=== PATIENT | male | born 1965 | race Caucasian/White ===

== ENCOUNTER 2018-08-05 17:16 | Observation (INO) | payer OTHER ==
[~2018-08-05] VITALS: Ht 185.4 cm; Wt 106.1 kg
--- OUTSIDE RECORDS SUMMARY | ~2018-08-05 | XMS | Clinical Summary ---
Demographics + + + | Address | [address] | | | [place] [address] | + + + | Home Phone | | + + + | Preferred Language | Unknown | + + + | Marital Status | | + + + | Latter Day Affiliation | Unknown | + + + | Race | Unknown | + + + | Ethnic Group | Unknown | + + + Author + + + | Author | [facility] | | | and [place] | + + + | Organization | [facility] | | | and [place] | + + + | Address | Unknown | + + + | Phone | Unavailable | + + + Support + + + + + | Name | Relationship | Address | Phone | + + + + + | None,Per Pt | ECON | 4/3/13 | Unavailable | | | | NA, | | + + + + + | Katheryn Leon | ECON | [address] | | | | | [place] | | | | | [address] | | + + + + + Care Team Providers + +------+ + | Care Air Carrier Maintenance Inspector Name | Role | Phone | + +------+ + PP | Unavailable | + +------+ + Allergies Not on File Current Medications Not on file Active Problems Not on file Social History + +-------+ +--------+------+ | Tobacco Use | Types | Packs/Day | Years | Date | | | | | Used | | + +-------+ +--------+------+ | Never Assessed | | | | | + +-------+ +--------+------+ + + + | Sex Assigned at | Date Recorded | | | | + + + | Not on file | | + + + Plan of Treatment + + + + + | Health Maintenance | Due Date | Last Done | Comments | + + + + + | Vaccine: | | | | | Dtap/Tdap/Td (1 - | 4 | | | | Tdap) | | | | + + + + + | Vaccine: Zoster (1 | | | | | of 2) | 5 | | | + + + + + | Vaccine: Influenza | | | | | (#1) | 8 | | | + + + + + Results Not on filefrom Last 3 Months"
--- OUTSIDE RECORDS SUMMARY | ~2018-08-05 | XMS | Clinical Summary ---
Demographics + + + | Address | [address] | | | [place] [address] | + + + | Home Phone | | + + + | Preferred Language | Unknown | + + + | Marital Status | | + + + | Latter-Day Affiliation | Unknown | + + + | Race | Unknown | + + + | Ethnic Group | Unknown | + + + Author + + + | Author | [facility] | | | and [place] | + + + | Organization | [facility] | | | and [place] | [...] [place] | | | | | [address] | | + + + + + Care Team Providers + +------+ + | Care Exhibitor Sales Name | Role | Phone | + [...]
--- OUTSIDE RECORDS SUMMARY | ~2018-08-05 | XMS | Clinical Summary ---
Demographics + + + | Address | [address] | | | [place] [address] | + + + | Home Phone | | + + + | Preferred Language | Unknown | + + + | Marital Status | | + + + | Muslim Affiliation | Unknown | + + + | Race | Unknown | + + + | Ethnic Group | Unknown | + + + Author + + + | Author | [facility] | | | and [place] | + + + | Organization | [facility] | | | and [place] [...] [place] | | | | | [address] | | + + + + + Care Team Providers + +------+ + | Care Assurance Sourcing Manager Name | Role | Phone | + [...]
--- OUTSIDE RECORDS SUMMARY | ~2018-08-05 | XMS | Clinical Summary ---
Demographics + + + | Address | [address] | | | [place] [address] | + + + | Home Phone | | + + + | Preferred Language | Unknown | + + + | Marital Status | Single | + + + | Scientologist Affiliation | Unknown | + + + | Race | Unknown | + + + | Ethnic Group | Other Race | + + + Author + + + | Author | [facility] | + + + | Organization | [facility] | + + + | Address | Unknown | + + + | Phone | Unavailable | + + + Care Team Providers + +------+ + | Care Manager Eligibility Name | Role | Phone | + +------+ + PP | Unavailable | + +------+ + Source Comments JHOANA is fully live on both [facility] and [facility] InPatient.[facility] Allergies Not on File Current Medications Not [...] | + + + Plan of Treatment Not on file Results Not on filefrom Last 3 Months Insurance + +--------+ +------+ + + | Payer | Benefi | Subscriber | Type | Phone | Address | | | t Plan | ID | | | | | | / | | | | | | | Group | | | | | + +--------+ +------+ + + | MODA | MODA | xxxxxxxxxx | PPO | [phone]- | [address] [address] | | | [place] | | | [phone] | [place] [address] | | | [place] | | | | | + +--------+ +------+ + + | [employer] CROSS BLUE | REGENC | [phone] | PPO | [phone] | [address] [address] [place] | | [place]IELD | E [employer] | x | | [phone] | [place], [place] | | | | | | | [phone] | + +--------+ +------+ + + + +--------+ +--------+ + + | Guarantor Name | Accoun | Relation to | Date | Phone | Billing Address | | | t Type | Patient | of | | | | | | | | | | + +--------+ +--------+ + + | BOOM HILLS | Person | Self [birth year] | Home: | [address] | | | al/Fam | | 1965 | [phone] | [place] [address] | | | [place] | | | [address] | | + +--------+ +--------+ + +"
--- OUTSIDE RECORDS SUMMARY | ~2018-08-05 | XMS | Clinical Summary ---
Demographics + + + | Address | [address] | | | [place] [address] | + + + | Home Phone | | + + + | Preferred Language | Unknown | + + + | Marital Status | Single | + + + | Druze Affiliation | Unknown | + + + | Race | Unknown | + + + | Ethnic Group | Other Race | + + + Author + + + | Author | [facility] | + + + | Organization | [facility] | + + + | Address | Unknown | + + + | Phone | Unavailable | + + + Care Team Providers + +------+ + | Care Networking Administrator Name | Role | Phone | + +------+ + PP | Unavailable | + +------+ + Source Comments JHOANA is fully live on both [facility] and [facility] InPatient.[facility] Allergies Not on File Current Medications Not [...] | PPO | +1- | [address] [address] | | | [place] | | | [phone] | [place] [address] | | | [place] | | | | | + +--------+ +------+ + + | [employer] CROSS BLUE | REGENC | [phone] | PPO | [phone] | [address] [address] [place] | | SHIELD | E BCBS | x | | [phone] | [place], [place] | | | | | | | [phone] | + +--------+ +------+ + + + [...] | 1965 | [phone] | [place] [address] | | | [place] | | | [address] | | + +--------+ +--------+ + +"
--- OUTSIDE RECORDS SUMMARY | ~2018-08-05 | XMS | Clinical Summary ---
Demographics + + + | Address | [address] | | | [place] [address] | + + + | Home Phone | | + + + | Preferred Language | Unknown | + + + | Marital Status | Single | + + + | Mu-Ism Affiliation | Unknown | + + + | Race | Unknown | + + + | Ethnic Group | Other Race | + + + Author + + + | Author | [facility] | + + + | Organization | [facility] | + + + | Address | Unknown | + + + | Phone | Unavailable | + + + Care Team Providers + +------+ + | Care Pairer Odds Name | Role | Phone | + +------+ + PP | Unavailable | + +------+ + Source Comments JHOANA is fully live on both [facility] and [facility] InPatient.[facility] Allergies Not on File Current Medications [...] | PPO | +1- | [address] [phone] | | | [place] | | | [address] | [place] [address] | | | [place] | | | | | + +--------+ +------+ + + | [employer] CROSS BLUE | REGENC | [phone] | PPO | [phone] | [address] [address] [place] | | SHIELD | E BCBS | x | | [phone] | [place], [place] | | | | | | | [phone] | + +--------+ +------+ + + + [...] | 1965 | [phone] | [place] [address] | | | [place] | | | [address] | | + +--------+ +--------+ + +"
--- NOTE | 2018-08-05 23:12 | NUR ---
08/05/18 4203 Anju Urbano PT IS WIDE AWAKE UPON ARRIVAL TO PACU. HE IS ABLE TO ASK QUESTIONS ABOUT HIS SURGERY AND ANSWER QUESTIONS APPROPRIATELY.
--- NOTE | 2018-08-05 23:45 | NUR ---
PT ADMITTED TO ROOM 124 FROM PACU, SIMI WILKINS. PT AWAKE, ABLE TO SLIDE SLOWLY ACROSS FROM STRETCHER TO BED, TOLERATED WELL. HELP DESK ENGINEER, SOFIYA, GAVE REPORT. STATED THAT PT WAS 2/10 PAIN, RECEIVED IV TYLENOL PRIOR TO ADMISSION. DENIES NAUSEA, BUT DID STATE HE WAS "LIGHT HEADED" WHEN MOVING TO BED. PT IN ROOM. COMPLETED ADMISSION PROCESS.
--- NOTE | 2018-08-06 00:30 | NUR ---
PATIENT ARRIVED FROM PACU VIA STRETCHER. POLICE JUSTICE IN ROOM TO ASSIST WITH ADDMISSION. PATIENT IS ALERT AND ORIENTED X4. VS STABLE. PLACED ON CONTINUOUS PULSE OX. IV SITE FLUSHED WELL, CONTINUOUS FLUIDS STARTED PER ORDER. SCDS IN USE. PATIENT DENIED PAIN UPON ARRIVAL, HOWEVER AFTER ASSESSMENT AND ADMISSION COMPLETED HE REPORTED AN INCREASE IN PAIN TO 4/10 IN HIS ABDOMEN. ICE PACK PROVIDED AND PRN PAIN MEDICATION PER ORDER. PATIENT DENIES NAUSE, TOELRATING SIPS OF WATER. LAP SITES X3, APPEARS WNL. COVERED WITH MINIMAL DRAINAGE. BOWEL SOUNDS HYPOACTIVE. PATIENT DENIES NEED TO VOID AT THIS TIME. AT BEDSIDE. DISCUSSED PLAN OF CARE AND GOALS FOR THE SHIFT. PATIENT RESTING IN BED. CALL LIGHT IN HAND.
--- NOTE | 2018-08-06 02:08 | NUR ---
PATIENT RESTING IN BED. APPEARED TO BE SLEEPING WHEN RN ENTERED ROOM. WOKE EASILY TO VOICE. VS DONE, WNL. PATIENT TOLERATING ROOM AIR. PAIN WELL CONTROLLED, 07/05. ICE PACK IN PLACE. PATIENT SPLINTING WHEN HE COUGHS. NO NAUSEA. TOLERATING BITES OF JELLO AND SIPS OF WATER. IV ABX STARTED PER ORDER, SITE WNL. PATIENT DENIES TOILETING NEEDS AT THIS TIME. CALL LIGHT IN REACH.
--- NOTE | 2018-08-06 02:52 | NUR ---
VITALS DONE AND CHARTED. PT NEEDS NOTHING AT THIS TIME. BEDSIDE TABLE AND CALL LIGHT IN REACH.
--- NOTE | 2018-08-06 05:34 | NUR ---
PATIENT'S IV SITE ALARMING FOR DISTAL OCCLUSION. SITE FLUSHED EASILY. REPOSITIONED PATIENT'S ARM. IV LFUIDS INFUSING. PATIENT REPORTS PAIN 2/10, DENIES PRN PAIN MED NEEDS AT THIS TIME. NO NAUSEA. TOLERATING WATER AND JELLO.
--- NOTE | 2018-08-06 07:01 | NUR ---
PATIENT VS STABLE. UP TO VOID, DIFFICULTY VOIDING BUT WAS ABLE TO EMPTY BLADDER. 650 MLS. PAIN WELL CONTROLLED. 07/05. PRN NORCO GIVEN, PATIENT STATES HE WANTS TO "KEEP UP ON THE PAIN". AT BEDSIDE. PASTORAL CARE IN TO VISIT.
--- NOTE | 2018-08-06 07:02 | NUR ---
PATIENT DOING WELL POST OP. VS STABLE. TOLERATING ROOM AIR. PAIN WELL CONTROLLED. IV FLUIDS PER ORDER. TOLERATING ORAL FLUIDS. NO NAUSEA. SBA. LAP SITES X3, SMALL AMOUNT OF DRAINAGED NOTED. GAUZE DRESSINGS IN PLACE. PATIENT PASSING GAS. VOIDING QS.
--- NOTE | 2018-08-06 07:25 | CONS ---
[facility] [address] [place], [place] [address] Signed DATE OF CONSULTATION: 08/05/2018 CHIEF COMPLAINT: Right lower quadrant abdominal pain. 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 Earlier today, just after lunch, he developed right lower quadrant abdominal pain. He had fevers. He felt nauseated. He barely made it through the end of the school day and eventually had his bring him to our local emergency room. His happens to be one of our nurses. In the emergency room, he is tender in the right lower quadrant with normal blood work. He was sent for CT scan of the abdomen and pelvis and there was some inflammation next to the ileocecal valve with the appendix likely coiled in this area according to our radiologist. As a result, I was asked to see him in the emergency room regarding his findings. In the meantime, he has been given IV fluids, pain control, and Rocephin and Flagyl. PAST MEDICAL HISTORY: Brayden thyroiditis. 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 SOCIAL HISTORY: He does not smoke or drink. He is to his , Katheryn, . He is a junior software developer. They prefer the [facility]. Sarthak Neal is his primary care provider. FAMILY HISTORY: Dad smoked in his 20s and 30s and ended up with coronary artery disease and stroke. Mom has Brayden thyroiditis. REVIEW OF SYSTEMS: Boom had 10 systems reviewed and include the pertinent findings in the above. ALLERGIES: None. MEDICATIONS: None. PHYSICAL EXAMINATION: Electronically Signed By: MADY GALVAN MD 08/06/18 0725 PATIENT NAME: AJAY HILLS CONSULTATION DATE OF : 65 REPORT #: [id number] PHYSICIAN: MADY GALVAN MD PCP: SARTHAK NEAL PA-C REPORT IS CONFIDENTIAL AND NOT TO BE RELEASED WITHOUT AUTHORIZATION [facility] [address] [place], [place] [address] Signed VITAL SIGNS: Blood pressure 166/81, his heart rate is 94, his respiratory rate is 18, temperature is 100.5. He is 96% on room air. He is 104 kg and 6 feet 1 inch tall. GENERAL: Ajay is a 53-year-old gentleman, lying semi-recumbent in his ER bed. His , Katheryn, and his son, Chi, are in the room along with a friend. He does not appear systemically ill or toxic. LUNGS: Clear to auscultation. HEART: Regular rate and rhythm. ABDOMEN: Soft and flat, but he is tender in the right lower quadrant. LABORATORY DATA: His white blood count is 9.5, hemoglobin 15, neutrophils 89. Electrolytes are unremarkable. Liver function tests are negative. Albumin is 4.3, lipase 6. RADIOGRAPHIC STUDIES: CT scan of the abdomen and pelvis shows this inflammation is in the midline near the bifurcation of the aorta near the ileocecal valve. ASSESSMENT AND PLAN: Ajay is a 53-year-old gentleman who appears to present with classic appendicitis. He has been given antibiotics, IV fluids, and pain control. We are going to be taking him to the operating room here shortly for his laparoscopy. I reviewed all the findings with Ajay and his . We have reviewed the location and function of the appendix. We have reviewed laparoscopic versus open appendectomy. He understands expected intraop and postop course. We did review the risks including, but not limited to bleeding, infection, scarring, change in contour of the skin, damage to bowel, appendiceal stump leak, postoperative intraabdominal abscess as well as incisional hernias and other unforeseen comorbidities. He has expressed understanding and would like to proceed. Mady Galvan MD ALB/MODL /[id number] cc: Sarthak Galvan MD Electronically Signed By: MADY GALVAN MD 08/06/18 0725 PATIENT NAME: AJAY HILLS CONSULTATION DATE OF : 65 REPORT #: [id number] PHYSICIAN: MADY GALVAN MD PCP: SARTHAK NEAL PA-C REPORT IS CONFIDENTIAL AND NOT TO BE RELEASED WITHOUT AUTHORIZATION [facility] [address] [place] [address] Signed Copies: MADY GALVAN MD ~ Electronically Signed By: MADY GALVAN MD 08/06/18 0725 PATIENT NAME: AJAY HILLS CONSULTATION DATE OF : 65 REPORT #: [id number] PHYSICIAN: MADY GALVAN MD PCP: SARTHAK NEAL PA-C REPORT IS CONFIDENTIAL AND NOT TO BE RELEASED WITHOUT AUTHORIZATION
--- NOTE | 2018-08-06 07:30 | NUR ---
BEDSIDE HANDOFF REPORT RECEIVED FROM CATERING AND EVENTS MANAGER RN. PT RESTING IN BED. PT PROVIDED FRESH WATER AND ICE PACK. PT DENIES OTHER NEEDS AT THIS TIME.
--- NOTE | 2018-08-06 07:34 | EKG ---
[facility] [address] [facility] [place] [address] Signed Normal sinus rhythm Normal ECG No previous ECGs available Confirmed by HIWOT YUN MD ([id number]) on 08/06/2018 7:34:31 AM Electronically Signed By: HIWOT YUN MD 08/06/18 0734 PATIENT NAME: AMAIRANI HILLS MCKENZIE Electrocardiogram DATE OF : 65 PHYSICIAN: HIWOT YUN MD REPORT #: [id number] REPORT IS CONFIDENTIAL AND NOT TO BE RELEASED WITHOUT AUTHORIZATION
--- NOTE | 2018-08-06 08:05 | NUR ---
PT RESTING IN BED. PT ASSISTED TO BATHROOM VOIDING QS. PT RATES PAIN MILD. PT ON ROOM AIR, LUNG SOUNDS CLEAR. BOWEL TONES ACTIVE, TOELRATING CLEAR LIQUID DIET. LAP SITES X3, SMALL AMOUNT OF SANGUINGUINOUS DRAINAGE TO SUPRAPUBIC AND UMBILICAL SITES. CMS INTACT, WITHOUT EDEMA. IV FLAGYL INFUSING. DISCUSSED PLAN OF CARE FOR THE DAY. PT DENIES OTHER NEEDS AT THIS TIME.
--- NOTE | 2018-08-06 08:33 | OR ---
[facility] [address] [place], [place] [address] Signed DATE OF OPERATION: 08/05/2018 SURGEON: Mady Galvan MD DATE OF OPERATION: 08/05/2018 PREOPERATIVE DIAGNOSIS: Acute appendicitis. POSTOPERATIVE DIAGNOSIS: Unremarkable appendix. PROCEDURE PERFORMED: Laparoscopic appendectomy. ESTIMATED BLOOD LOSS: None. FINDINGS: Unremarkable appendix and unremarkable terminal ileum. 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 Also, his is one of our nurses. 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 He had a couple of boiled eggs for lunch. He barely made it through his last class and ended up calling his and eventually came into the emergency room for evaluation. He was tender in the right lower quadrant and his white count was normal. Consequently, he had a CT scan of the abdomen and pelvis performed. There seemed to be some slight inflammation right near the bifurcation of the aorta and the cecum was over there and it was thought that maybe the appendix was coiled in that area and of course, the terminal ileum was there as well. Consequently, there was concern that Boom had early appendicitis. I was therefore asked to see him as a general surgeon on-call. He had received Rocephin and Flagyl and some pain medication IV fluids in the emergency room. I had met with Boom and his in the emergency room and their son Chi. We had a long discussion regarding the above findings. In addition, Ajay has had both hips replaced twice. Therefore, he has had four total surgeries. He is very anxious obviously and very concerned about any potential infection for the hips. We decided we would take him to the operating room for laparoscopic appendectomy. I reviewed Electronically Signed By: MADY GALVAN MD 08/06/18 0833 PATIENT NAME: AJAY HILLS OPERATIVE REPORT DATE OF : 65 REPORT #: [id number] PHYSICIAN: MADY GALVAN MD PCP: SARTHAK PETERSON PA-C REPORT IS CONFIDENTIAL AND NOT TO BE RELEASED WITHOUT AUTHORIZATION [facility] [address] [place], [place] [address] Signed laparoscopic versus open appendectomy with Boom and his . We had discussed the expected intraop and postop course. There is risk to surgery including, but not limited to bleeding, infection, scarring, change in contour of the skin, damage to bowel, appendiceal stump leak, postoperative intraabdominal abscess, incisional hernias and other unforeseen comorbidities. They had expressed understanding and wished to proceed. PROCEDURE IN DETAILS: Ajay was taken in the operating room and placed in a supine position under general endotracheal tube anesthesia. He was already given preoperative antibiotics along with subcutaneous heparin. SCDs were utilized. A Rose catheter was inserted with return of clear yellow urine. Urine without difficulty. He was then prepped and draped in the usual sterile fashion. All trocars were placed in usual positions under direct visualization of camera without difficulty. We found that as is typical for men, Boom has a significant amount of intraabdominal adipose tissue. We had taken pictures throughout for photodocumentation. We noticed that his cecum traveled down deep into his pelvis. It took just a minute to get the cecum up and out of the pelvis and his appendix just looked completely unremarkable. There was a lot of air in the cecum and the right colon and overall several loops of small bowel. We cleared off the base of the appendix with the help of the cautery and divided it from the cecum with the help of a linear stapler. The mesoappendix was then divided with the linear stapler. Hemostasis was excellent along both staple lines. The appendix was placed into an EndoCatch bag and taken out through the right subcostal trocar site. We reintroduced the trocar and we did our best to keep the cecum up and out of the pelvis which was difficult. We were able to examine the terminal ileum and it seemed unremarkable to us. There did not seem to be obvious inflammatory changes in the surrounding fat. There was just one little area of redness on the lateral side of his abdomen, but that was far away from the inflammation we saw nor near the aortic bifurcation on the CT scan. There was just far too much adipose tissue to examine the pelvis or the rest of the ileum to any significant degree. Again, we did notice there was quite a bit of air in his cecum, right colon as well as several loops of small bowel. After this, we used our laparoscopic suturing device to pass 0 Vicryl suture on either side of the fascia of the subxiphoid trocar site. This was tied down to close this fascia primarily. After this, all the gas was allowed to escape and the remaining trocars were removed. The appendix was passed off the field and pictures were taken by our circulating nurse. We then closed the fascia of the supraumbilical trocar site with interrupted simple and [id number] 0 Vicryl sutures. Local anesthetic was injected into all trocar sites. Each trocar site was irrigated and suctioned out until clear. The skin and dermis of each trocar site were closed with interrupted 3-0 subcuticular Monocryl sutures. Dry gauze and tape were then applied. Ajay's Rose catheter was removed while he was asleep without difficulty. After this, Boom was awakened from his anesthesia, extubated in the OR, and taken to recovery room in stable condition. Electronically Signed By: MADY GALVAN MD 08/06/18 0833 PATIENT NAME: AJAY HILLS OPERATIVE REPORT DATE OF : 65 REPORT #: [id number] PHYSICIAN: MADY GALVAN MD PCP: SARTHAK PETERSON PA-C REPORT IS CONFIDENTIAL AND NOT TO BE RELEASED WITHOUT AUTHORIZATION [address] [address] Signed MD QUIN Moore/ELVIRA /[id number] cc: MD Sarthak Moore Copies: MADY GALVAN MD ~ Electronically Signed By: MADY GALVAN MD 08/06/18 0833 PATIENT NAME: AJAY HILLS OPERATIVE REPORT DATE OF : 65 REPORT #: [id number] PHYSICIAN: MADY GALVAN MD PCP: SARTHAK PETERSON PA-C REPORT IS CONFIDENTIAL AND NOT TO BE RELEASED WITHOUT AUTHORIZATION
--- NOTE | 2018-08-06 09:45 | NUR ---
FALGYL INFUSION COMPLETED, DR5LR INFUSING AT 100 ML/HR. PT RATING PAIN 3/10, PLAN FOR PAIN MEDICATION AT 1030. PT DENIES OTHER NEEDS AT THIS TIME.
--- NOTE | 2018-08-06 11:30 | NUR ---
PT ASSISTED TO ORDER FULL LIQUID DIET. PT DENIES OTHER NEEDS AT THIS TIME.
[2018-08-06] MEDS ORDERED: ZYRTEC10 MG PO (11:59)
[2018-08-06] MEDS ORDERED: PROAIR HFA8.5 GM INH (12:00)
--- NOTE | 2018-08-06 12:22 | NUR ---
PATIENT UP TO BATHROON TO VOID WITH STANDBY ASSIST. PATIENT COUGH A RED MUCUS PLUG.
--- NOTE | 2018-08-06 12:30 | NUR ---
PT COMPLAINT OF COUGHING UP BLOODY MUCUS. SMALL AMOUNT OF BRIGHT RED SPUTUM. PT INSTRUCTED TO CALL IF HE COUGHS UP MORE BLOOD.
--- NOTE | 2018-08-06 12:31 | NUR ---
SPOUSE OF PT REQUESTED I VISIT WITH PT. HE HAD LAP APPY LAST NIGHT,IS ALERT, ORIENTED AND PAIN IS NOT AN ISSUE. HAD PLEASANT VISIT, CONCRETE BUSTER OPERATOR IN TO DO ASSESSMENT. EXTENDED A BLESSING, WILL FOLLOW NEEDED
--- NOTE | 2018-08-06 13:08 | NUR ---
MED REC COMPLETE
--- NOTE | 2018-08-06 13:40 | NUR ---
PT RESTING IN BED. PT ON ROOM AIR, LUNG SOUNDS CLEAR. PT DENIES NAS[place]A, BOWEL TONES ACTIVE, TOLERATING FULL LIQUID DIET. PT RATING PAIN TOLERABLE. NO ACUTE CHANGES. SUPRAPUBIC DRESSING REMOVED. DISCUSSED SHOWER AFTER ANTIBIOTIC INFUSION AND THEN WALK IN [place]. PT DENIES OTHER NEEDS AT THIS TIME.
--- NOTE | 2018-08-06 14:40 | NUR ---
PT WALKING IN [place] WITH .
--- NOTE | 2018-08-06 14:45 | NUR ---
PATIENT TOOK A SHOWER AND ALSO DID 2 LAPS AROUND MED SURG.
--- NOTE | 2018-08-06 15:02 | NUR ---
PT COMPLETED WITH WALK IN [place], IV INFUSION RESTARTED. PT RATING PAIN 2/10, PT REQUESTING NORCO 1 TAB AND MOTRIN, DISCUSSED PAIN MANAGEMENT WITH PT. PT DENIES OTHER NEEDS AT THIS TIME.
--- NOTE | 2018-08-06 15:45 | NUR ---
DR. GALVAN CALLED AND NOTIFIED THAT PT IS TOELRATING FULL LIQUID WELL, ORDER TO ADVANCE TO REGULAR DIET. DR. GALVAN ALSO NOTIFIED OF BLOODY SPUTUM THIS AFTERNOON, NO NEW ORDER.
--- NOTE | 2018-08-06 16:31 | NUR ---
GOT HIM A NEW ICE PACK. AND ALSO ORDERED HIS DINNER AND BREAKFAST.
--- NOTE | 2018-08-06 17:32 | NUR ---
PT ON ROOM AIR, LUNG SOUNDS CLEAR. PT ADVANCED TO REGULAR DIET, DENIES NAUSEA, BOWEL TONES ACTIVE. LAP SITES X3, OPEN TO AIR. PT SHOWERED. IV FLUIDS DECREASED TO 50 ML/HR, IV FLAGYL. PAIN WELL CONTROLLED WITH NORCO AND MOTRIN. PT VOIDING QS. PT WALKED IN [place].
--- NOTE | 2018-08-06 19:30 | NUR ---
PATIENT VISITING WITH HIS AND WATCHING TV, GOT REPORT FROM PM SHIFT NURSE.
--- NOTE | 2018-08-06 21:00 | NUR ---
PATIENT GIVEN SOME NEW ICE WATER AND SOME ICE CREAM.
--- NOTE | 2018-08-06 22:15 | NUR ---
VITALS AND I&OS DONE AND CHARTED. FRESH ICE WATER GIVEN. BEDSIDE TABLE AND CALL LIGHT IN REACH. PT NEEDS NOTHING MORE AT THIS TIME.
--- NOTE | 2018-08-06 22:16 | NUR ---
CHARGE NURSE ROUNDING NOTE: WALKING HALLWAYS WITH FAMILY, TOLERATED WELL. NO C/O PAIN, NO REQUESTS. CALL LIHGT AND FLUIDS AT BEDSIDE
--- NOTE | 2018-08-07 00:05 | NUR ---
PATIENT RESTING QUIETLY AND HIS HAS GONE HOME.
--- NOTE | 2018-08-07 01:26 | NUR ---
HELPED PT TO THE BATHROOM AND BACK TO BED. FRESH ICE PACK MADE AND GIVEN. BEDSIDE TABLE AND CALL LIGHT IN REACH. PT NEEDS NOTHING MORE AT THIS TIME.
--- NOTE | 2018-08-07 02:49 | NUR ---
PATIENT'S 2AM ANTIBIOTIC JUST HUNG AND ABD PAIN 2-3/10. 800MG PO MOTRIN GIVEN AND ICE WATER FILLED.
--- NOTE | 2018-08-07 04:16 | NUR ---
PATIENT UP TO THE BATHROOM TO VOID AND TOLERATED WELL, AND IS NOW BACK TO BED.
--- NOTE | 2018-08-07 04:56 | NUR ---
PATIENT HAS NOT HAD MORE THAN A 2-3/10 ABD PAIN ALL NIGHT AND HE HAS ONLY TAKE 2 PO 800 MG MOTRIN THIS THIS. PATIENT HAS DONE LAPS AROUND THE UNIT IN THE EVENING WITH HIS WITH AND AGAIN THIS AM WHEN HE WOKE UP. ALL 3 LAP INCISIONS ARE WELL APPROXIMATED AND LOOK. RAC IV IS SOME WHAT POSITIONAL, BUT PATIENT. SCD'S IN PLACE. TAKING FLUIDS WELL.
--- NOTE | 2018-08-07 07:06 | NUR ---
PT AWAKE AND ALERT IN BED. CALLED RN DESK TO REPORT IV BEEPING. CLEARED PUMP WHILE IN ROOM. PT READY TO DISCHARGE.
[2018-08-07] MEDS ORDERED: NORCO 5-325 TA1 EACH PO (08:01)
[2018-08-07] MEDS ORDERED: IBU800 MG PO (08:01)
--- NOTE | 2018-08-07 11:58 | NUR ---
PT WITING FOR DC ORDERS. HE IS DRESSED, AND SAID HE IS READY TO GO HOME AND SLEEP. FEELS WELL, HAD GOOD VISIT. PT REQUESTED PRAYER, WILL FOLLOW NEED ARISES
--- NOTE | 2018-08-07 12:28 | DS ---
[facility] [address] [place], [place] [address] Signed ADMISSION DATE: 08/05/2018 DISCHARGE DATE: 08/07/2018 FINAL DIAGNOSIS: Unremarkable appendix. PROCEDURE: Laparoscopic appendectomy. HISTORY OF PRESENT ILLNESS: Ajay is a 53-year-old gentleman who presented to the emergency room with a half day history of right lower quadrant abdominal pain and fever and nausea and anorexia. His exam was concerning for appendicitis. His laboratory work was unremarkable. The CT scan showed mild inflammation near the aortic bifurcation, right next to the terminal ileum in the area of the cecum. It was thought that maybe the appendix was cold in that area. HOSPITAL COURSE: Ajay was admitted as above and started on his antibiotics, pain control, and IV fluids. I met with Boom and his who happens to be one of our nurses. We had taken him to the operating room that same day and he underwent an uncomplicated laparoscopic appendectomy. Visibly, the appendix seemed unremarkable. We did not see any specific inflammatory changes around the cecum or the terminal ileum itself. There was enough adipose tissue in the abdomen. We could not really see anything around the aortic bifurcation. He did have a lot of gas in his cecum and his small bowel. However, after surgery, he said he felt much better. He advanced his diet quite readily. He has been passing gas, ambulating in the hallways and doing quite well. We did leave him on Rocephin and Flagyl throughout the hospital stay because of his four hip replacements. He is obviously very concerned about infections. At this point, he is doing quite well and we are going to be discharging him to home. DISCHARGE PLANS AND MEDICATIONS: We are going to send him home with Vernal 5/325 1-2 tablets p.o. q.4-6 hours p.r.n. for severe postop pain. We will dispense 20 tablets with no refills. He can use ibuprofen 800 mg p.o. q.6 hours p.r.n. for pain and he can purchase that [id number]. He can continue his regular diet. He can perform his activities of daily living including walking up and down stairs and showering bathing as usual. He should not engage any heavy pushing, pulling, or lifting over 20 pounds. He is allowed to go swimming after 2 full weeks. I will see him back in my office in 7 to 10 days for followup. He has expressed understanding and agrees the above plan. Electronically Signed By: MADY GALVAN MD 08/07/18 1228 PATIENT NAME: AJAY HILLS DISCHARGE SUMMARY DATE OF : 65 REPORT #: [id number] PHYSICIAN: MADY GALVAN MD PCP: SARTHAK PETERSON PA-C REPORT IS CONFIDENTIAL AND NOT TO BE RELEASED WITHOUT AUTHORIZATION [address] [address] Signed MD QUIN Moore/ELVIRA /[id number] cc: MD Solange Moore Copies: MADY GALVAN MD ~ Electronically Signed By: MADY GALVAN MD 08/07/18 1228 PATIENT NAME: AJAY HILLS DISCHARGE SUMMARY DATE OF : 65 REPORT #: [id number] PHYSICIAN: MADY GALVAN MD PCP: SARTHAK PETERSON PA-C REPORT IS CONFIDENTIAL AND NOT TO BE RELEASED WITHOUT AUTHORIZATION
== END 2018-08-07 10:02 | disposition home or self-care (01) ==
LOC: ED 17:16 → MS 17:17
PROVIDERS: ADMIT Colon & Rectal Surgery
PROC: 0DTJ4ZZ Resection of Appendix, Percutaneous Endoscopic Approach (ICD-10-PCS; principal; 2018-08-05 10:15)
DX: R10.31 Right lower quadrant pain (principal); R93.5 Abnormal findings on diagnostic imaging of other abdominal regions, including retroperitoneum; E06.3 Autoimmune thyroiditis; Z96.643 Presence of artificial hip joint, bilateral
CPT/HCPCS: 00840; 74177; 80053; 81001; 83690; 85025; 93005; 93010; 94762; 96361; 96366; 96368; 96375; 96376; 99285-25; C9113; G0378; J0131; J0696; J1100; J1170; J1644; J1885; J2250; J2405; J3010; J3475; J7030; J7120; Q9967

== ENCOUNTER 2021-12-02 18:33 | Emergency (ER) | payer OTHER ==
[~2021-12-02] VITALS: Ht 185.4 cm; Wt 106.6 kg
[~2021-12-02 18:33] MED LIST: IBU800 MG PO; NORCO 5-325 TA1 EACH PO; PROAIR HFA8.5 GM INH; ZYRTEC10 MG PO
[2021-12-02] MEDS ORDERED: KLOR-CON 1010 MEQ PO (20:56)
== END 2021-12-02 21:29 | disposition home or self-care (01) ==
LOC: ED 18:33
DX: B34.9 Viral infection, unspecified (principal); Z20.822 Contact with and (suspected) exposure to COVID-19
CPT/HCPCS: 36415; 80048; 81001; 83605; 85025; 87502; 99283; A9270; C9803; U0003

== ENCOUNTER 2024-04-02 08:04 | Emergency (ER) | payer OTHER ==
[~2024-04-02] VITALS: Ht 185.4 cm; Wt 103.0 kg
[~2024-04-02 08:04] MED LIST changes: +KLOR-CON 1010 MEQ PO
[2024-04-02] MEDS ORDERED: ATORVASTATIN CA20 MG PO (08:27)
[2024-04-02] MEDS ORDERED: LOSARTAN POTAS100 MG PO (08:27)
[2024-04-02 08:29] LABS: BASOPHILS 0.4 % (0-2); EOSINOPHILS 0.8 % (0-6); HEMATOCRIT 45.4 % (35.0-50.0); HEMOGLOBIN 15.6 g/dL (12.0-18.0); LYMPHOCYTES 19.7 % (24-44); MCH 29.7 (27-36); MCHC 34.4 g/dl (30-36); MCV 86.5 fl (81-99); MONOCYTES 6.6 % (0-12); NEUTROPHILS 72.5 % (39-80); PLATELET COUNT 260 K/uL (140-440); RBC 5.24 M/ul (4.3-5.7); RDW 12.5 (10.5-15.0)
[2024-04-02 08:45] LABS: ALBUMIN 3.9 g/dL (3.4-5.0); ALBUMIN/GLOBULIN RATIO 1.22 (1.1-2.4); ANION GAP 12.3 (7-21); BILIRUBIN, TOTAL 0.6 ng/dL (0.2-1.0); POTASSIUM 4.3 mmol/L (3.5-5.1); PROTEIN, TOTAL 7.1 g/dL (6.4-8.2)
[2024-04-02 10:18] VITALS: BP 158/92
--- NOTE | 2024-04-03 22:10 | EKG ---
[facility] [address] [place] [address] Signed Sinus rhythm with occasional premature ventricular complexes Otherwise normal ECG When compared with ECG of 05-AUG-2018 21:13, premature ventricular complexes are now present Confirmed by Heidy Pollack MD () on 04/03/2024 10:10:03 PM Electronically Signed By: HEIDY POLLACK MD 04/03/24 2210 PATIENT NAME: AMAIRANI HILLS MCKENZIE Electrocardiogram DATE OF : 65 PHYSICIAN: HEIDY POLLACK MD REPORT #: [id number] REPORT IS CONFIDENTIAL AND NOT TO BE RELEASED WITHOUT AUTHORIZATION
== END 2024-04-02 10:19 | disposition home or self-care (01) ==
LOC: ED 08:04
PROVIDERS: Emergency Medicine
DX: R20.0 Anesthesia of skin (principal); R20.2 Paresthesia of skin; Z96.643 Presence of artificial hip joint, bilateral; Z79.899 Other long term (current) drug therapy; Z86.73 Personal history of transient ischemic attack (TIA), and cerebral infarction without residual deficits
CPT/HCPCS: 36415; 70450; 70496; 70498; 80053; 85025; 93005; 93010; 99284-25; Q9967

== ENCOUNTER 2024-09-13 12:27 | Emergency (ER) | payer OTHER, BC ==
[~2024-09-13] VITALS: Ht 182.9 cm; Wt 103.0 kg
[~2024-09-13 12:27] MED LIST changes: +ATORVASTATIN CA20 MG PO; +LOSARTAN POTAS100 MG PO
[2024-09-13] MEDS ORDERED: IBUPROFEN 800 MG TAB PO ONE (13:15)
[2024-09-13] MEDS ORDERED: ACETAMINOPHEN 500 MG TAB PO ONE (13:15)
[2024-09-13] MEDS ORDERED: HYDROCODONE/ACETA 5/325 TAB PO ONE (14:15)
[2024-09-13] MEDS ORDERED: HYDROCODON-ACE1 EA11 PO (14:44)
[2024-09-13 15:10] VITALS: BP 175/88
== END 2024-09-13 15:10 | disposition home or self-care (01) ==
LOC: ED 12:27
DX: S82.62XA Displaced fracture of lateral malleolus of left fibula, initial encounter for closed fracture (principal); S82.892A Other fracture of left lower leg, initial encounter for closed fracture; Z79.899 Other long term (current) drug therapy; W18.30XA Fall on same level, unspecified, initial encounter
CPT/HCPCS: 73610; 99283; A9270

== ENCOUNTER 2024-09-17 06:25 | Day surgery (SDC) | payer OTHER, BC ==
[2024-09-15 13:25] VITALS: BP 123/67
[~2024-09-17] VITALS: Ht 185.4 cm; Wt 102.3 kg
[~2024-09-17 06:25] MED LIST changes: +HYDROCODON-ACE1 EA11 PO; +LACTATED RINGER'S 1,000 ML IV SCH
[2024-09-17 06:37] VITALS: BP 166/87
[2024-09-17] MEDS ORDERED: CEFAZOLIN SODIUM 2 GM/20 ML SYR IV SCH (07:00)
[2024-09-17] MEDS ORDERED: IBLOOD GLUCOSE TEST STRIP 1 EA TEST VI PRN (07:00)
[2024-09-17] MEDS ORDERED: LIDOCAINE HCL 1% 5 ML SDV INJ ONE (07:00)
[2024-09-17] MEDS ORDERED: SODIUM CHLORIDE 0.9% 20 ML IV ONE (07:06)
[2024-09-17] MEDS ORDERED: DEXAMETHASONE SOD PHOS 4 MG/ML VIAL ONE ×2 (07:06→09:07)
[2024-09-17] MEDS ORDERED: dexmedeTOMIDine HCl 200 MCG/2 ML VIAL ONE (07:06)
[2024-09-17] MEDS ORDERED: Ropivacaine HCl 0.5% 30 ML VIAL ONE (07:06)
[2024-09-17] MEDS ORDERED: fentaNYL citrate 100 MCG/2 ML VIAL ONE (07:06)
[2024-09-17] MEDS ORDERED: propofoL 200 MG/20 ML VIAL ONE ×2 (07:06→08:18)
[2024-09-17] MEDS ORDERED: LIDOCAINE HCL 2% 5 ML SDV ONE ×3 (07:06→10:00)
[2024-09-17] MEDS ORDERED: MIDAZOLAM HCL 2 MG/2 ML VIAL ONE (07:06)
[2024-09-17] MEDS ORDERED: ondansetron HCL 4 MG/2 ML VIAL ONE ×2 (07:36→09:07)
[2024-09-17] MEDS ORDERED: ondansetron HCL 4 MG/2 ML VIAL IV ONE (07:45)
--- NOTE | 2024-09-17 08:06 | NUR ---
0735 verbal order received from Serjio Fountain CRNA for 4 mg of Zofran IV once now for pt's nausea. 0738 NAUSEA MEDICATION GIVEN PER EMAR. 0804 PT OXYGEN SATUARTION DIPPING DOWN TO 88% ON RA WHILE PT IS SLEEPING AFTER RECEIVING MEDICATIONS FROM SERJIO Fountain CRNA FOR BLOCK. SPOKE WITH SERJIO Fountain CRNA ABOUT OXYGEN SATURATION. VERBAL ORDER FOR 1L OF OXYGEN VIA NASAL CANULLA TO KEEP OXYGEN SATURATION ABOVE 90%. 0805 PT PLACED ON 1L OF OXYGEN VIA NASAL CANULLA TO MAINTAIN OXYGEN SATURATION ABOVE 90%. PT OXYGEN AT 98% ON 1L OF OXYGEN.
[2024-09-17] MEDS ORDERED: HYDROCODONE/ACETA 7.5/325 TAB PO PRN (08:30)
[2024-09-17] MEDS ORDERED: DICLOFENAC SOD 75 MG TABEC PO SCH (09:00)
[2024-09-17] MEDS ORDERED: DICLOFENAC SODI75 MG PO (09:29)
[2024-09-17] MEDS ORDERED: HYDROCODON-ACE1 EA11 PO (09:30)
--- NOTE | 2024-09-17 09:45 | NUR ---
09/17/24 0945 Sheets,Merna 0952 PT ARRIVED TO PACU WITH 6L VIA MASK, PT REACTIVE TO TACTILE STIMULI. VSS. 0940 O2 MASK REMOVED AND PT WAKES TO VERBAL STIMULI. PT REORIENTED TO PACU AND DENEIS CONCERNS. PT REPORTS NUMBNESS IN LEFT FOOT AND EDUCATION GIVEN ON BLOCKS. 0943 PT RESTING WITH EYS CLOSED AND O2 SAT LOW 90S. SMALL AMOUNT OF SNORING NOTED.
[2024-09-17 10:07] VITALS: BP 123/65
[2024-09-17 11:06] VITALS: BP 113/59
--- NOTE | 2024-09-17 11:36 | NUR ---
1000 PT ARRRIVED TO DAY SURGERY VIA MARITZAR. PT DROWSEY BUT OREIENTED. PT IN ROOM. ALL VITALS TAKEN. IV ASSESSED. PT REPORTS NO PAIN AT THIS TIME. PT REPORTS NO NAUSEA AT THIS TIME. PT HAS NO SENSATION IN LLE ANKLE AREA. PT HAS CRACKERS AND WATER AT BEDSIDE. 110O HOURLY ROUNDING DONE WITH PT. PT REQEST MORE WATER. PT REPORTS NO PAIN OR NAUSEA AT THIS TIME. 1115 PT USES CALL LIGHT TO ALERT RN THAT PT NEEDS TO URINATE. USED WHEELCHAIR TO GET PT TO BATHROOM, PT ABLE TO STAND AND TRANSFER SELF TO WHEELCHAIR. PT ABLE TO VOID 650 MLS OF CLEAR YELLOW URINE. PT BACK TO ROOM VIA WHEELCHAIR. PT GETTING DRESSED WITH ASSISTANCE. 1120 DISCHARGE INFORMATION GONE OVER WITH PT AND . NO QUESTIONS AT THIS TIME. IV REMOVED FOR DISCHARGE. 1127 PT DISCHARGED FROM DAY SURGERY VIA WHEELCHAIR TO FRONT OF THE HOSPITAL TO PT'S 'S CAR.
--- NOTE | 2024-09-17 12:19 | OR ---
[facility] [address] [place], [place] [address] Signed DATE OF OPERATION: 09/17/2024 SURGEON: Emelia Jones MD PREOPERATIVE DIAGNOSIS: Carter B ankle fracture, left. POSTOPERATIVE DIAGNOSIS: Carter B ankle fracture, left. PROCEDURE PERFORMED: Open reduction and internal fixation of left lateral malleolus. COOLING ROOM ATTENDANT: Yuli Guajardo PA-C. Yuli was present and critical for all portions of procedure. ANESTHESIA: General. BLOOD LOSS: 50 mL. TOURNIQUET TIME: Zero. IMPLANTS: 3.8 x 135 FibuLock with three locking screws. 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 Risks and benefits of operative treatment were discussed with him. He elected to proceed. DESCRIPTION OF PROCEDURE: Once consent was obtained, he was taken to the operating room. After adequate anesthesia, he was placed on operating room table with a hip bump. The leg was then prepped and draped in a standard sterile fashion. The fibula was marked out using the image intensifier. A 1 cm incision was made distal to the fibula and blunt dissection was taken down to the tip. The fracture was then reduced and held with percutaneous Electronically Signed By: EMELIA JONES MD 09/17/24 1219 PATIENT NAME: AMAIRANI HILLS OPERATIVE REPORT DATE OF : 65 REPORT #: [id number] PHYSICIAN: EMELIA JONES MD PCP: SARTHAK PETERSON PA-C REPORT IS CONFIDENTIAL AND NOT TO BE RELEASED WITHOUT AUTHORIZATION [facility] [address] [place], [place] [address] Signed tenaculum. Once the fracture was adequately reduced, the guidewire was advanced from the tip of the fibula proximally across the fracture engaging the body of the fibula. This was then over-reamed using the large reamer followed by the 3.2 reamer. This was not felt to be adequately canal feeling. We then used a 4.0 reamer and reamed over the jamaal. We then selected for the 3.8 x 130 FibuLock. This was selected, placed on the insertion handle and inserted from the tip of the fibula proximally across the fracture engaging in the body of the fibula proximally. Once it was impacted adequate depth, the proximal fins were deployed. The three locking screws were placed distally through separate stab incisions. The clamp was removed. Final radiographs showed anatomic reduction, good placement of the jamaal and screw lengths. The wounds were then copiously irrigated with normal saline, closed with corey. They were dressed with Allevyn and Phill wrap. He was placed into a fracture boot. He tolerated the procedure well. All sponge, needle, and instrument counts were correct. Emelia Jones MD BA/ELVIRA /[id number] Copies: ~ Electronically Signed By: EMELIA JONES MD 09/17/24 1219 PATIENT NAME: AMAIRANI HILLS OPERATIVE REPORT DATE OF : 65 REPORT #: [id number] PHYSICIAN: EMELIA JONES MD PCP: SARTHAK PETERSON PA-C REPORT IS CONFIDENTIAL AND NOT TO BE RELEASED WITHOUT AUTHORIZATION
[2024-09-17] MEDS ORDERED: SEVOFLURANE 250 ML BTL INH ONE (16:16)
== END 2024-09-17 11:27 | disposition home or self-care (01) ==
LOC: DS 06:25
PROVIDERS: ATTEND Specialist
PROC: 0QSK04Z Reposition Left Fibula with Internal Fixation Device, Open Approach (ICD-10-PCS; principal; 2024-09-17 09:00)
DX: S82.62XA Displaced fracture of lateral malleolus of left fibula, initial encounter for closed fracture (principal); W01.0XXA Fall on same level from slipping, tripping and stumbling without subsequent striking against object, initial encounter; Y92.219 Unspecified school as the place of occurrence of the external cause; Y99.8 Other external cause status; M19.90 Unspecified osteoarthritis, unspecified site
CPT/HCPCS: 01480; 64447; 73600; 76942; C1713; C1769; J0690; J1100; J2003; J2250; J2405; J2704; J2795; J3010; J7121